=== PATIENT | female | born 1960 | race Caucasian/White ===

== ENCOUNTER 2021-05-20 01:12 | Emergency (ER) | payer MEDICAID ==
[~2021-05-20] VITALS: Ht 160 cm; Wt 72.7 kg
[2021-05-20 01:22] VITALS: BP 160/101
== END 2021-05-20 03:00 | disposition home or self-care (01) ==
LOC: ER 01:14
DX: S61.012A Laceration without foreign body of left thumb without damage to nail, initial encounter (principal); Z72.89 Other problems related to lifestyle; W26.8XXA Contact with other sharp object(s), not elsewhere classified, initial encounter; Y93.89 Activity, other specified; Y92.89 Other specified places as the place of occurrence of the external cause; Y99.8 Other external cause status
CPT/HCPCS: 99282

== ENCOUNTER 2021-09-28 06:47 | Emergency (ER) | payer MEDICAID ==
[~2021-09-28] VITALS: Ht 160 cm; Wt 75.9 kg
[2021-09-28 07:05] VITALS: BP 123/89
--- NOTE | 2021-09-28 08:55 | NUR ---
DISCUSSED THE PT PAIN WITH DR JONATHAN BIANCHI TO ORDER X RAY OF CERVICAL SPINE.
--- NOTE | 2021-09-28 08:58 | NUR ---
PT STATED SHE NOTICED SWELLING AROUND HER CLAVICLE ,INFORMED THAT X RAY OF CERVICAL SPINE IS ORDERED.
[2021-09-28] MEDS ORDERED: HYDROcodone/acetaminophen 5mg/325mg tablet PO ONE (11:10)
[2021-09-28] MEDS ORDERED: naproxen 500mg tablet PO ONE (11:10)
[2021-09-28] MEDS ORDERED: triamcinolone acetonide 40mg/ml inj IM ONE (11:10)
[2021-09-28] MEDS ORDERED: cyclobenzaprine 10mg tablet PO ONE (11:10)
[2021-09-28] MEDS ORDERED: CYCL-1 PO (12:50)
[2021-09-28] MEDS ORDERED: NAPR-56 PO (12:50)
== END 2021-09-28 13:19 | disposition home or self-care (01) ==
LOC: ER 06:47
DX: M19.90 Unspecified osteoarthritis, unspecified site (principal); M62.830 Muscle spasm of back; M54.2 Cervicalgia; Z72.89 Other problems related to lifestyle; Z79.899 Other long term (current) drug therapy
CPT/HCPCS: 72040; 72125; 96372; 99284; J3301